=== PATIENT | female | born 1950 | race Caucasian/White ===

== ENCOUNTER 2016-12-03 13:43 | Emergency (ER) | payer MEDICARE ==
[~2016-12-03] VITALS: Ht 177.8 cm; Wt 108.0 kg
[~2016-12-03 13:43] MED LIST: ASCO500T8 PO; DRON400T PO; FISH OIL 500 M1 EACH PO; LACT1CAP40 PO; LISI-167 PO; LOSA25TA5 PO; METO25TA91 PO; MULT-82 PO; RIVA20TA PO; TRIH2TAB3 PO; artane PO
[2016-12-03] MEDS ORDERED: SODIUM CHLORIDE FLUSH 10ML SYR IVF ONE (14:30)
[2016-12-03] MEDS ORDERED: SODIUM CHLORIDE 0.9% 1,000ML IVBOLUS ONE (14:30)
[2016-12-03 15:17] LABS: BLOOD UREA NITROGEN 21 mg/dL (7-18)
[2016-12-03 15:19] LABS: IS PT STATUS REG ER OR PRE ER? YES
[2016-12-03 15:45] LABS: PATH.CAST-FLAG NOT PRESENT; SPERM-FLAG NOT PRESENT; SRC-FLAG NOT PRESENT; XTAL-FLAG NOT PRESENT; YLC-FLAG NOT PRESENT
[2016-12-03] MEDS ORDERED: DRONEDARONE 400MG TABLET PO ONE (16:00)
[2016-12-03 17:39] VITALS: BP 121/76
== END 2016-12-03 17:47 | disposition home or self-care (01) ==
LOC: ED 16:04
DX: N30.01 Acute cystitis with hematuria (principal); R42 Dizziness and giddiness; I48.0 Paroxysmal atrial fibrillation; I12.9 Hypertensive chronic kidney disease with stage 1 through stage 4 chronic kidney disease, or unspecified chronic kidney disease; N18.9 Chronic kidney disease, unspecified; Z90.49 Acquired absence of other specified parts of digestive tract; Z90.710 Acquired absence of both cervix and uterus; Z88.6 Allergy status to analgesic agent
CPT/HCPCS: 36415; 71010; 80048; 81001; 82040; 83690; 83735; 83880; 84484; 85025; 87086; 93005; 96360; 99285; J7030

== ENCOUNTER → 2017-02-26 | Outpatient (CLI) | payer MEDICARE | END | disposition home or self-care (01) | LOC: CFH 11:45 | PROVIDERS: ATTEND Internal Medicine Cardiovascular Disease | DX: I48.91 Unspecified atrial fibrillation (principal); Z79.01 Long term (current) use of anticoagulants | CPT/HCPCS: 71020 ==

== ENCOUNTER → 2018-05-23 | Outpatient (CLI) | payer MEDICARE ==
[~2018-05-23] MED LIST changes: -LOSA25TA5 PO; +LOSA25TA6 PO; +MULT-224 PO; -MULT-82 PO; +REGADENOSON 0.4 MG/5 ML SYRINGE ONE
== END | disposition home or self-care (01) ==
LOC: CFH 08:10
PROVIDERS: ATTEND Internal Medicine Cardiovascular Disease
DX: I21.29 ST elevation (STEMI) myocardial infarction involving other sites (principal); I07.1 Rheumatic tricuspid insufficiency; I35.8 Other nonrheumatic aortic valve disorders; I48.0 Paroxysmal atrial fibrillation; I10 Essential (primary) hypertension; E78.5 Hyperlipidemia, unspecified
CPT/HCPCS: 78452; 93017; 93306; A9502; J2785